=== PATIENT | female | born 1930 | race Caucasian/White ===

== ENCOUNTER 2018-11-04 07:25 | Emergency (ER) | payer BC ==
[2018-11-04] MEDS: HYDROCODONE/APAP (5/325) TAB PO (08:32)
== END 2018-11-04 12:08 | disposition home or self-care (01) ==
LOC: E/R 07:25
DX: S29.001A Unspecified injury of muscle and tendon of front wall of thorax, initial encounter (principal); R07.81 Pleurodynia; W18.39XA Other fall on same level, initial encounter; Y92.007 Garden or yard of unspecified non-institutional (private) residence as the place of occurrence of the external cause
CPT/HCPCS: 71045; 71100; 99283-25